=== PATIENT | female | born 1965 | race Caucasian/White ===

== ENCOUNTER → 2017-06-29 | Outpatient (CLI) | payer OTHER ==
[~2017-06-29] MED LIST: NO HOME MEDICATIONS
== END ==
LOC: MHCPAIN 15:01
DX: G89.29 Other chronic pain (principal); M47.812 Spondylosis without myelopathy or radiculopathy, cervical region; M79.2 Neuralgia and neuritis, unspecified; F17.210 Nicotine dependence, cigarettes, uncomplicated
CPT/HCPCS: G0463

== ENCOUNTER → 2017-07-21 | Outpatient (CLI) | payer OTHER | LOC: MHCPAIN 10:46 | DX: M50.322 Other cervical disc degeneration at C5-C6 level (principal) ==

== ENCOUNTER 2017-12-29 08:31 | Day surgery (SDC) | payer OTHER ==
[~2017-12-29] VITALS: Ht 154.9 cm; Wt 56.8 kg
[2017-12-29 08:47] VITALS: BP 148/99; PULSE 104; TEMP 97.4
[2017-12-29 10:15] VITALS: BP 115/75; PULSE 89
[2017-12-29 10:30] VITALS: BP 118/82; PULSE 82
[2017-12-29 10:45] VITALS: BP 128/84; PULSE 79
== END 2017-12-29 10:50 | disposition home or self-care (01) ==
LOC: SDCO 08:31
DX: Z12.11 Encounter for screening for malignant neoplasm of colon (principal); K63.89 Other specified diseases of intestine; Z85.3 Personal history of malignant neoplasm of breast
CPT/HCPCS: OP; J2250; J2405; J2704; J3010

== ENCOUNTER 2019-06-07 06:31 | Day surgery (SDC) | payer OTHER ==
[~2019-06-07] VITALS: Ht 154.9 cm; Wt 45.3 kg
[2019-06-07 07:27] VITALS: BP 115/83; PULSE 89; TEMP 97.5
[2019-06-07] MEDS ORDERED: ADVIL200 MG PO (07:31)
[2019-06-07] MEDS ORDERED: TYLENOL 500MG500 MG PO (07:32)
[2019-06-07 07:33] LABS: BASO # 0.1 (0.0-0.2); BASO % 1.7 % (0.0-2.0); EOS # 0.1 (0.0-0.7); EOS % 2.3 % (0-4.0); GRAN # 1.4 (1.4-6.5); GRAN % 45.1 % (42.2-75.2); HEMATOCRIT 39.1 % (37.0-47.0); HEMOGLOBIN 14.1 g/dl (12.5-16.0); LYMPH % 34.3 % (20.0-51.0); MEAN CELL VOLUME 102 fl (80.0-100.0); MEAN CORPUSCULAR HEMOGLOBIN 37 pg (27.0-31.0); MEAN CORPUSCULAR HGB CONC 36 g/dl (33.0-37.0); MEAN PLATELET VOLUME 9.4 fl (7.4-10.4); MONO # 0.5 (0.1-0.6); MONO % 16.3 % (1.7-9.3); PLATELET COUNT 179 K/mm3 (130-400); RED BLOOD COUNT 3.82 M/mm3 (4.10-5.30); REDCELL DISTRIBUTION WIDTH-CV 12.4 % (11.5-14.5)
[2019-06-07 07:39] LABS: ALANINE AMINOTRANSFERASE 38 U/L (9-52); ALBUMIN 4.3 gm/dL (3.5-5.0); ALKALINE PHOSPHATASE 89 U/L (50-136); ANION GAP 12 mmol/L (7-16); AST,SGOT 78 U/L (15-37); BILIRUBIN,TOTAL 0.4 mg/dL (0.0-1.0); BLOOD UREA NITROGEN < 2 mg/dL (7-17); CALCIUM 9.3 mg/dL (8.4-10.2); CARBON DIOXIDE 23 mmol/L (22-30); CHLORIDE 96 mmol/L (98-107); CREATININE, serum 0.41 (0.52-1.25); GLUCOSE 84 mg/dL (74-106); POTASSIUM 4.2 mmol/L (3.4-5.0); SODIUM 131 mmol/L (137-145); TOTAL PROTEIN 7.4 gm/dL (6.4-8.2)
[2019-06-07 07:55] VITALS: BP 130/81; PULSE 92; TEMP 97
[2019-06-07 08:10] VITALS: BP 130/81; PULSE 93
[2019-06-07 08:25] VITALS: BP 120/64; PULSE 89
[2019-06-07 08:40] VITALS: BP 125/79; PULSE 76
--- NOTE | 2019-06-07 09:25 | NUR ---
PT RETURNED FROM ENDO OR SUITE INTO BAY#4. PT HAVING PRODUCTIVE COUGH. COUGHING UP LIGHT YELLOW SPUTUM. PT DENIES HAVING PRODUCTIVE COUGH PRIOR TO PROCEDURE TODAY. PT WOULD CLEAR THROAT DURING PRE-OPERATIVE PERIOD. LUNGS CLEAR, DIMINISHED TO ALL LUNG LOU. AFEBRILE. DENIES SHORTNESS OF BREATH. SATS WNL@ 98% ON ROOM AIR. HRR, BOWELS ACTIVE. ASKING FOR WATER AND PUDDING. IN ROOM WITH HER. WILL CONT TO MONITOR.
--- NOTE | 2019-06-07 09:32 | NUR ---
PT TOLERATING WATER AND PUDDING. DENIES PAIN OR NAUSEA WITH INTAKE. PT COUGHING HAS SUBSIDED. PT DENIES FEELING DYSPNEIC. O2 STATS REMAIN IN THE UPPER 90'S. IVF DC'D. TALKING WITH , CALL LIGHT IN REACH, WILL CONT TO MONITOR.
--- NOTE | 2019-06-07 09:36 | NUR ---
PT DENIES PAIN, SHORTNESS OF BREATH, NAUSEA. DC'D INT. IV TO RIGHT ANTECUBITAL. TOLERATED WELL. VSS. CALLED FOR A 1 W[address] RETURN APPT WITH DR. HERNÁNDEZ. WILL MONITOR.
--- NOTE | 2019-06-07 09:40 | NUR ---
PT A/OX3, VSS. DENIES PAIN OR NAUSEA. CONT TO TOLERATE FOOD AND FLUIDS. DISCHARGE INSTRUCTIONS GIVEN. SCRIPTS EXPLAINED AND GIVEN TO PT AND . THEY VOICE UNDERSTANDING WITHOUT FURTHER EXPLANATION. RETURN APPT MADE AND PUT ON DISCHARGE INSTRUCTIONS. BELONGINGS RETURNED. PT DISCHARGED TO FAMILY VEHICLE PER PT ADMIT ENTRANCE. DRIVING.
== END 2019-06-07 09:49 | disposition home or self-care (01) ==
LOC: SDCO 06:31
PROVIDERS: Surgery
DX: K29.00 Acute gastritis without bleeding (principal); K29.80 Duodenitis without bleeding; K21.0 Gastro-esophageal reflux disease with esophagitis; K29.50 Unspecified chronic gastritis without bleeding; F17.210 Nicotine dependence, cigarettes, uncomplicated; J45.909 Unspecified asthma, uncomplicated; Z92.21 Personal history of antineoplastic chemotherapy; Z80.3 Family history of malignant neoplasm of breast; Z82.49 Family history of ischemic heart disease and other diseases of the circulatory system; Z83.3 Family history of diabetes mellitus
CPT/HCPCS: J2704; J7030